=== PATIENT | male | born 1975 | race African-American/Black ===

== ENCOUNTER 2019-05-01 20:23 | Emergency (ER) | payer BC ==
[~2019-05-01] VITALS: Ht 175.3 cm; Wt 73.6 kg
[~2019-05-01 20:23] MED LIST: ATIVAN0.5 MG PO; EXCEDRIN BACK &1 TAB PO; LORTAB 5/500 501 TAB PO; MECLIZINE25 MG PO; NAPROSYN500 MG PO; PHENERGAN 25 TA25 MG PO; PROMETHAZINE12.5 M5 PO; VICODIN 5/5001 UDTAB PO; ZITHROMAX Z PA250 MG PO; ZOFRAN 4MG T4 MG/TAB PO
[2019-05-01 20:27] VITALS: BP 125/71; TEMP 98.1
[2019-05-01] MEDS ORDERED: NAPROXEN 3375 MG/TAB PO (21:01)
[2019-05-01 21:33] LABS: COLLECTION METHOD CLEAN CATCH
[2019-05-01 21:39] LABS: PH 7 (5-8); SQUAMOUS EPITHELIAL None Seen /hpf; URINE APPEARANCE Clear; URINE BACTERIA Rare /hpf; URINE BILIRUBIN Negative (NEGATIVE); URINE BLOOD Negative (NEGATIVE); URINE COLOR Yellow; URINE GLUCOSE Negative (NEGATIVE); URINE KETONE Negative (NEGATIVE); URINE LEUKOCYTE ESTERASE Negative (NEGATIVE); URINE NITRATE Negative (NEGATIVE); URINE PROTEIN(semi-quant) Negative (NEGATIVE); URINE RBC 0-2 /hpf; URINE UROBILINOGEN Negative (NEGATIVE)
[2019-05-01 22:10] VITALS: PULSE 80
== END 2019-05-01 22:09 | disposition home or self-care (01) ==
LOC: COL.ER 20:23
PROVIDERS: Emergency Medicine
DX: G56.21 Lesion of ulnar nerve, right upper limb (principal); R07.89 Other chest pain